=== PATIENT | female | born 1965 | race Caucasian/White ===

== ENCOUNTER → 2017-02-03 | Outpatient (CLI) | payer BC ==
[2017-02-03 11:08] LABS: CHLORIDE,CL 105 mmol/L (98-110); SODIUM,NA 141 mmol/L (136-146)
== END ==
LOC: MW.LAB 10:10
PROVIDERS: ATTEND Surgery
DX: Z01.812 Encounter for preprocedural laboratory examination (principal); E87.6 Hypokalemia
CPT/HCPCS: 36415; 80048

== ENCOUNTER 2017-09-06 19:01 | Emergency (ER) | payer BC ==
[2017-09-06] MEDS ORDERED: Famotidine 20 MG/2 ML SDV IVPUSH ONE (19:24)
[2017-09-06] MEDS ORDERED: Ketorolac 30 MG/ML SDV IVPUSH ONE (19:24)
[2017-09-06] MEDS ORDERED: Sodium Chloride 0.9% 10 ML Syringe FLUSH PRN (19:24)
[2017-09-06] MEDS ORDERED: Sodium Chloride 0.9% 2.5 ML Syringe FLUSH PRN (19:24)
[2017-09-06] MEDS ORDERED: Alum Hydrox/Mag Hydrox/Simeth 15 ML, Metoclopramide 5 MG, Lidocaine 2% 5 ML PO ONE ×3 (19:24)
--- NOTE | 2017-09-06 19:29 | EDM.PDOC ---
ED HPI GENERAL MEDICAL PROBLEM - General Chief Complaint: Chest Pain Stated Complaint: BODY PAIN Time Seen by Provider: 09/06/17 19:10 Source of Information: Reports: Patient History Limitations: Reports: No Limitations - History of Present Illness INITIAL COMMENTS - FREE TEXT/NARRATIVE: History of present illness: [52-year-old female comes in complaining of substernal chest pain. Patient indicates she is about to sit down to dinner when she had this stabbing searing pain right at her sternum. Patient indicates that this was similar to the pain she had when she had a gallbladder attack before she had it removed.] Review of systems: As per history of present illness and below otherwise all systems reviewed and negative. Past medical history: As per history of present illness and as reviewed below otherwise noncontributory. Surgical history: As per history of present illness and as reviewed below otherwise noncontributory. Social history: No reported history of drug or alcohol abuse. Family history: As per history of present illness and as reviewed below otherwise noncontributory. Physical exam: HEENT: Atraumatic, normocephalic, pupils reactive, negative for conjunctival pallor or scleral icterus, mucous membranes moist, throat clear, neck supple, nontender, trachea midline. Lungs: Clear to auscultation, breath sounds equal bilaterally, chest nontender. Heart: S1S2, regular, negative for clicks, rubs, or JVD. Abdomen: Soft, nondistended, nontender. Negative for masses or hepatosplenomegaly. Negative for costovertebral tenderness. Pelvis: Stable nontender. Genitourinary: Deferred. Rectal: Deferred. Extremities: Atraumatic, negative for cords or calf pain. Neurovascular unremarkable. Neuro: Awake, alert, oriented. Cranial nerves II through XII unremarkable. Cerebellum unremarkable. Motor and sensory unremarkable throughout. Exam nonfocal. Diagnostics: [CBC, CMP, chest x-ray, EKG, troponin, amylase, lipase] Therapeutics: [IV fluid, GI cocktail, Toradol] Impression: [#1 Atypical chest pain #2 hypokalemia] Plan: [Increase potassium bearing foods follow-up with primary care] Definitive disposition and diagnosis as appropriate pending reevaluation and review of above. Lower Chest Pain Score (Numeric/FACES): 8 - Related Data Allergies Allergy/AdvReac Type Severity Reaction Status Date / Time adhesive tape Allergy skin peels Verified 09/06/17 19:10 off and bruise Sulfa (Sulfonamide Allergy Anaphylactic Verified 09/06/17 19:10 Antibiotics) Shock Home Meds: Home Meds Hydrochlorothiazide 0 mg PO DAILY 12/03/14 [History] Levomilnacipran Hydrochloride [Fetzima] 80 mg PO DAILY 12/03/14 [History] Baclofen 10 mg PO DAILY 09/06/17 [History] Metoprolol Succinate [Toprol XL] 25 mg PO DAILY 09/06/17 [History] Natalizumab [Tysabri] 1 dose IV ASDIRECTED 09/06/17 [History] Potassium Chloride 20 meq PO DAILY 09/06/17 [History] Venlafaxine [Effexor] 75 mg PO DAILY 09/06/17 [History] Past Medical History Cardiovascular History: Reports: Hypertension Respiratory History: Reports: None Genitourinary History: Reports: None Neurological History: Reports: MS Psychiatric History: Reports: Depression - Infectious Disease History Infectious Disease History: Reports: Chicken Pox, Shingles - Past Surgical History HEENT Surgical History: Reports: Naso-Sinus Surgery GI Surgical History: Reports: Cholecystectomy, Other (See Below) Social & Family History - Family History Family Medical History: Noncontributory - Tobacco Use Smoking Status *Q: Never Smoker Second Hand Smoke Exposure: No - Caffeine Use Caffeine Use: Reports: Tea - Alcohol Use Days Per Week of Alcohol Use: 0 - Recreational Drug Use Recreational Drug Use: No ED ROS GENERAL - Review of Systems Review Of Systems: See Below (See history of present illness) ED EXAM, GENERAL - Physical Exam Exam: See Below (History of present illness) Course - Vital Signs Last Recorded V/S: Last Vital Signs Temp 36.7 C 09/06/17 19:04 Pulse 64 09/06/17 19:04 Resp 18 09/06/17 19:04 BP 118/51 L 09/06/17 19:04 Pulse Ox 97 09/06/17 19:04 - Orders/Labs/Meds Orders: Active Orders 24 hr Category Date Time Status EKG Documentation Completion [RC] STAT Care 09/06/17 19:24 Active Potassium Chloride [Klor-Con M20] Med 09/06/17 22:00 Ordered 40 meq PO TID Sodium Chloride 0.9% [Normal Saline] 1,000 ml Med 09/06/17 19:45 Active IV ASDIRECTED Sodium Chloride 0.9% [Saline Flush] Med 09/06/17 19:24 Active 10 ml FLUSH ASDIRECTED PRN Sodium Chloride 0.9% [Saline Flush] Med 09/06/17 19:24 Active 2.5 ml FLUSH ASDIRECTED PRN Saline Lock Insert [OM.PC] Stat Oth 09/06/17 19:24 Ordered Medication Orders Sodium Chloride (Normal Saline) 1,000 mls @ 999 mls/hr IV ASDIRECTED SAMANTHA Last Admin: 09/06/17 19:43 Dose: 999 mls/hr Potassium Chloride (Klor-Con M20) 40 meq PO TID SAMANTHA Last Admin: 09/06/17 20:57 Dose: 40 meq Sodium Chloride (Saline Flush) 10 ml FLUSH ASDIRECTED PRN PRN Reason: Keep Vein Open Last Admin: 09/06/17 19:44 Dose: 10 ml Sodium Chloride (Saline Flush) 2.5 ml FLUSH ASDIRECTED PRN PRN Reason: Keep Vein Open Last Admin: 09/06/17 19:43 Dose: 2.5 ml Labs: Laboratory Tests 09/06/17 09/06/17 09/06/17 Range/Units 19:39 19:39 20:20 WBC 7.45 (4.0-11.0) K/uL RBC 4.23 L (4.30-5.90) M/uL Hgb 12.5 (12.0-16.0) g/dL Hct 37.5 (36.0-46.0) % MCV 88.7 (80.0-98.0) fL MCH 29.6 (27.0-32.0) pg MCHC 33.3 (31.0-37.0) g/dL RDW Std Deviation 46.8 (28.0-62.0) fl RDW Coeff of Ari 14 (11.0-15.0) % Plt Count 212 (150-400) K/uL MPV 10.50 (7.40-12.00) fL Neut % (Auto) 29.1 L (48.0-80.0) % Lymph % (Auto) 60.7 H (16.0-40.0) % [place] % (Auto) 6.7 (0.0-15.0) % Eos % (Auto) 3.1 (0.0-7.0) % Baso % (Auto) 0.4 (0.0-1.5) % Neut # (Auto) 2.2 (1.4-5.7) K/uL Lymph # (Auto) 4.5 H (0.6-2.4) K/uL [place] # (Auto) 0.5 (0.0-0.8) K/uL Eos # (Auto) 0.2 (0.0-0.7) K/uL Baso # (Auto) 0.0 (0.0-0.1) K/uL Nucleated RBC % 0.0 /100WBC Nucleated RBCs # 0 K/uL Sodium 139 (136-146) mmol/L Potassium 2.9 L (3.5-5.1) mmol/L Chloride 105 (98-110) mmol/L Carbon Dioxide 23 (21-31) mmol/L BUN 13 (6.0-23.0) mg/dL Creatinine 0.9 (0.6-1.5) mg/dL Est Cr Clr Drug Dosing 57.17 mL/min Estimated GFR (MDRD) > 60.0 ml/min Glucose 89 (60-110) mg/dL Calcium 9.3 (8.8-10.8) mg/dL Total Bilirubin 0.6 (0.1-1.5) mg/dL AST 30 (5-40) IU/L ALT 25 (8-54) IU/L Alkaline Phosphatase 68 (40-150) Troponin I < 0.10 (0.0-0.29) NG/ML Total Protein 7.3 (6.0-8.0) g/dL Albumin 4.0 (3.5-5.0) g/dL Globulin 3.3 (2.0-3.5) g/dL Albumin/Globulin Ratio 1.2 L (1.3-2.8) Amylase 45 (10-90) U/L Lipase 19 (7-80) U/L Urine Color Urine Appearance Urine pH (5.0-8.0) Ur Specific [place] (1.001-1.035) Urine Protein (NEGATIVE) mg/dL Urine Glucose (UA) (NEGATIVE) mg/dL Urine Ketones (NEGATIVE) mg/dL Urine Occult Blood (NEGATIVE) Urine Nitrite (NEGATIVE) Urine Bilirubin (NEGATIVE) Urine Urobilinogen (<2.0) EU/dL Ur Leukocyte Esterase (NEGATIVE) Urine RBC (0-2/HPF) Urine WBC (0-5/HPF) Ur Epithelial Cells (NONE-FEW) Urine Bacteria (NEGATIVE) Urine Mucus (NONE-MOD) Urine HCG, Qual NEGATIVE (NEGATIVE) 09/06/17 Range/Units 20:20 WBC (4.0-11.0) K/uL RBC (4.30-5.90) M/uL Hgb (12.0-16.0) g/dL Hct (36.0-46.0) % MCV (80.0-98.0) fL MCH (27.0-32.0) pg MCHC (31.0-37.0) g/dL RDW Std Deviation (28.0-62.0) fl RDW Coeff of Ari (11.0-15.0) % Plt Count (150-400) K/uL MPV (7.40-12.00) fL Neut % (Auto) (48.0-80.0) % Lymph % (Auto) (16.0-40.0) % [place] % (Auto) (0.0-15.0) % Eos % (Auto) (0.0-7.0) % Baso % (Auto) (0.0-1.5) % Neut # (Auto) (1.4-5.7) K/uL Lymph # (Auto) (0.6-2.4) K/uL [place] # (Auto) (0.0-0.8) K/uL Eos # (Auto) (0.0-0.7) K/uL Baso # (Auto) (0.0-0.1) K/uL Nucleated RBC % /100WBC Nucleated RBCs # K/uL Sodium (136-146) mmol/L Potassium (3.5-5.1) mmol/L Chloride (98-110) mmol/L Carbon Dioxide (21-31) mmol/L BUN (6.0-23.0) mg/dL Creatinine (0.6-1.5) mg/dL Est Cr Clr Drug Dosing mL/min Estimated GFR (MDRD) ml/min Glucose (60-110) mg/dL Calcium (8.8-10.8) mg/dL Total Bilirubin (0.1-1.5) mg/dL AST (5-40) IU/L ALT (8-54) IU/L Alkaline Phosphatase (40-150) Troponin I (0.0-0.29) NG/ML Total Protein (6.0-8.0) g/dL Albumin (3.5-5.0) g/dL Globulin (2.0-3.5) g/dL Albumin/Globulin Ratio (1.3-2.8) Amylase (10-90) U/L Lipase (7-80) U/L Urine Color YELLOW Urine Appearance CLEAR Urine pH 7.0 (5.0-8.0) Ur Specific [place] 1.015 (1.001-1.035) Urine Protein NEGATIVE (NEGATIVE) mg/dL Urine Glucose (UA) NEGATIVE (NEGATIVE) mg/dL Urine Ketones NEGATIVE (NEGATIVE) mg/dL Urine Occult Blood NEGATIVE (NEGATIVE) Urine Nitrite NEGATIVE (NEGATIVE) Urine Bilirubin NEGATIVE (NEGATIVE) Urine Urobilinogen 1.0 (<2.0) EU/dL Ur Leukocyte Esterase NEGATIVE (NEGATIVE) Urine RBC 0-1 (0-2/HPF) Urine WBC 0-2 (0-5/HPF) Ur Epithelial Cells OCCASIONAL (NONE-FEW) Urine Bacteria FEW (NEGATIVE) Urine Mucus FEW (NONE-MOD) Urine HCG, Qual (NEGATIVE) Meds: Medications Generic Name Dose Route Start Last Admin Trade Name Freq PRN Reason Stop Dose Admin Sodium Chloride 1,000 mls @ 999 mls/hr 09/06/17 19:45 09/06/17 19:43 Normal Saline IV 999 mls/hr ASDIRECTED SAMANTHA Administration Potassium Chloride 40 meq 09/06/17 22:00 09/06/17 20:57 Klor-Con M20 PO 40 meq TID SAMANTHA Administration Sodium Chloride 10 ml 09/06/17 19:24 09/06/17 19:44 Saline Flush FLUSH 10 ml ASDIRECTED PRN Administration Keep Vein Open Sodium Chloride 2.5 ml 09/06/17 19:24 09/06/17 19:43 Saline Flush FLUSH 2.5 ml ASDIRECTED PRN Administration Keep Vein Open Discontinued Medications Generic Name Dose Route Start Last Admin Trade Name Freq PRN Reason Stop Dose Admin Al Hydroxide/Mg Hydroxide 15 0 ml 09/06/17 19:24 09/06/17 19:44 ml/ Metoclopramide HCl 5 mg/ PO 09/06/17 19:25 25 each Lidocaine HCl 5 ml ONETIME ONE Administration Famotidine 20 mg 09/06/17 19:24 09/06/17 19:41 Pepcid IVPUSH 09/06/17 19:25 20 mg ONETIME ONE Administration Ketorolac Tromethamine 30 mg 09/06/17 19:24 09/06/17 19:40 Toradol IVPUSH 09/06/17 19:25 30 mg ONETIME ONE Administration Departure - Departure Time of Disposition: 21:09 Disposition: Home, Self-Care 01 Condition: Good Clinical Impression: Atypical chest pain - Discharge Information Referrals: Sheba Hanks [employer]ATOR [Primary Care Provider] - Forms: ED Department Discharge Additional Instructions: The following information is given to patients seen in the emergency department who are being discharged to home. This information is to outline your options for follow-up care. We provide all patients seen in our emergency department with a follow-up referral. The need for follow-up, as well as the timing and circumstances, are variable depending upon the specifics of your emergency department visit. If you don't have a primary care physician on staff, we will provide you with a referral. We always advise you to contact your personal physician following an emergency department visit to inform them of the circumstance of the visit and for follow-up with them and/or the need for any referrals to a consulting specialist. The emergency department will also refer you to a specialist when appropriate. This referral assures that you have the opportunity for follow-up care with a specialist. All of these measure are taken in an effort to provide you with optimal care, which includes your follow-up. Under all circumstances we always encourage you to contact your private physician who remains a resource for coordinating your care. When calling for follow-up care, please make the office aware that this follow-up is from your recent emergency room visit. If for any reason you are refused follow-up, please contact the [facility] Department at and asked to speak to the emergency department charge nurse. Follow-up with PCP 1-2 days Return to ED as needed as discussed - My Orders Last 24 Hours: My Active Orders 09/06/17 19:24 EKG Documentation Completion [RC] STAT Sodium Chloride 0.9% [Saline Flush] 10 ml FLUSH ASDIRECTED PRN Sodium Chloride 0.9% [Saline Flush] 2.5 ml FLUSH ASDIRECTED PRN Saline Lock Insert [OM.PC] Stat 09/06/17 19:45 Sodium Chloride 0.9% [Normal Saline] 1,000 ml IV ASDIRECTED 09/06/17 22:00 Potassium Chloride [Klor-Con M20] 40 meq PO TID - Assessment/Plan Last 24 Hours: My Active Orders 09/06/17 19:24 EKG Documentation Completion [RC] STAT Sodium Chloride 0.9% [Saline Flush] 10 ml FLUSH ASDIRECTED PRN Sodium Chloride 0.9% [Saline Flush] 2.5 ml FLUSH ASDIRECTED PRN Saline Lock Insert [OM.PC] Stat 09/06/17 19:45 Sodium Chloride 0.9% [Normal Saline] 1,000 ml IV ASDIRECTED 09/06/17 22:00 Potassium Chloride [Klor-Con M20] 40 meq PO TID
[2017-09-06] MEDS ORDERED: Sodium Chloride 0.9% 1,000 ML IV SCH (19:45)
[2017-09-06 20:10] LABS: CHLORIDE,CL 105 mmol/L (98-110); SODIUM,NA 139 mmol/L (136-146)
[2017-09-06] MEDS ORDERED: Potassium Chloride 20 MEQ Tab.ER PO SCH (22:00)
[2017-09-06 23:40] VITALS: BP 110/63
== END 2017-09-06 21:44 | disposition home or self-care (01) ==
LOC: MW.ED 19:01
DX: R07.89 Other chest pain (principal); E87.6 Hypokalemia; I10 Essential (primary) hypertension; Z88.2 Allergy status to sulfonamides; Z79.899 Other long term (current) drug therapy
CPT/HCPCS: 36415; 80053; 81001; 81025; 82150; 83690; 84484; 85025; 96361; 96374; 96375; 99285; A9270; J1885; J7040; 93005; 99284